=== PATIENT | female | born 1990 | race Caucasian/White ===

== ENCOUNTER 2020-07-08 12:00 | Emergency (ER) | payer OTHER ==
[~2020-07-08] VITALS: Ht 167.6 cm; Wt 82.6 kg
[~2020-07-08 12:00] MED LIST: MIGRAINE MEDICATION
[2020-07-08] MEDS ORDERED: PHENERGAN 25 MG25 M1 PO (12:11)
[2020-07-08] MEDS ORDERED: TOPAMAX100 MG PO (12:11)
[2020-07-08] MEDS ORDERED: MECLIZINE HCL25 MG PO (12:12)
[2020-07-08] MEDS ORDERED: CRUTCHES MISCELL (13:12)
[2020-07-08 13:19] VITALS: BP 127/82
== END 2020-07-08 13:20 | disposition home or self-care (01) ==
LOC: M.ERS 12:00
DX: S93.601A Unspecified sprain of right foot, initial encounter (principal); M79.674 Pain in right toe(s); J45.909 Unspecified asthma, uncomplicated; Z98.890 Other specified postprocedural states; Z79.899 Other long term (current) drug therapy; W18.09XA Striking against other object with subsequent fall, initial encounter; Y93.89 Activity, other specified; Y92.89 Other specified places as the place of occurrence of the external cause; Y99.8 Other external cause status